=== PATIENT | female | born 1985 | race African-American/Black ===

== ENCOUNTER 2025-01-13 18:01 | Emergency (ER) | payer SELFPAY ==
[2025-01-13 19:48] LABS: Absolute Eosinophils 0.1 K/uL (0-0.5); Absolute Lymphocytes (CBC) 3.1 K/uL (0.7-4.9); Absolute Monocytes 0.8 K/uL (0.1-1.3); Absolute Neutrophil 3.7 K/uL (1.8-8.0); Basophils % 0.6 % (0-1.3); Eosinophils % 1.2 % (0-4.4); Hematocrit 33.8 % (36.0-45.0); Hemoglobin 10.6 g/dL (12.0-15.0); Lymphocytes % 40.1 % (15.3-44.8); MCH 22.5 pg (27.0-35.0); MCHC 31.3 g/dL (32.0-36.0); MCV 72.1 fL (80-100); MPV 7.7 fL (7.6-11.3); Monocytes % 9.9 % (3.3-12.3); Neutrophils % 48.2 % (41.7-73.7); Nucleated Red Blood Cells % 0.1 % (0-0); Platelets 407 thou/uL (152-406); RBC Red Blood Cell Count 4.69 M/uL (3.86-4.86); Red Cell Distribution Width 17.4 % (12.1-15.2)
[2025-01-13] MEDS ORDERED: KETOROLAC 30 MG/ML INJ ONE (19:56)
[2025-01-13] MEDS ORDERED: NA CHLORIDE 0.9% 1,000 ML ONE (19:56)
[2025-01-13] MEDS ORDERED: MORPHINE 4 MG/ML SYR ONE (19:56)
[2025-01-13 19:58] LABS: Urine Bilirubin NEGATIVE (Negative); Urine Blood Negative (Negative); Urine Clarity Clear (Clear); Urine Color Light-Yellow (Yellow); Urine Glucose NEGATIVE (Negative); Urine Ketones NEGATIVE (Negative); Urine Microscopic Reflex YN NO UMIC; Urine Nitrite NEGATIVE (Negative); Urine Protein NEGATIVE (Negative); Urine Urobilinogen Normal (Normal)
[2025-01-13 20:01] LABS: Specific Gravity > 1.030 (1.005-1.030)
[2025-01-13 20:03] LABS: Albumin 3.4 g/dL (3.4-5.0); Albumin/Globulin Ratio 0.8 (1.1-1.8); Bilirubin Total 0.2 mg/dL (0.2-1.0); Globulin 4.5 g/dL (2.3-3.5); Protein, Total 7.9 g/dL (6.4-8.2)
--- NOTE | 2025-01-13 22:12 | RAD REPORT ---
EXAMINATION: CT Abdomen Pelvis W Contrast CLINICAL INDICATION: Female, 39 years old. FLANK PAIN TECHNIQUE: CT abdomen and pelvis was performed, after the administration of IV contrast, as [facility]. Axial, sagittal and coronal reconstructions were obtained. One or more of the following dose reduction techniques were used: Automated exposure control, adjustment of the mA and k V according to patient size, and iterative reconstruction. Unless otherwise specified, incidental findings do not require dedicated imaging follow-up. COMPARISON: No prior exam. FINDINGS: LOWER CHEST: The visualized lung bases are clear. LIVER: Mild fatty liver is present. No focal lesion or biliary dilataion is seen. BILIARY SYSTEM: Status post cholecystectomy. SPLEEN: Normal size. No focal lesion. PANCREAS: No mass, ductal dilation, or favio-pancreatic fluid. ADRENALS: Normal; no mass. KIDNEYS: Normal size and contour. No hydronephrosis. URINARY BLADDER: Unremarkable. GASTROINTESTINAL TRACT: No evidence of free air, significant intra-abdominal free fluid, bowel obstru ction or abscess. APPENDIX: Normal appendix. LYMPH NODES: No lymphadenopathy. MUSCULOSKELETAL: No acute or suspicious osseous abnormality. ADDITIONAL FINDINGS: Bulky appearance of the uterus with a large dominant fundal fibroid, measuring u p to 12.8 cm, with other smaller fibroids to the right of the midline. IMPRESSION: No acute abnormalities seen in the abdomen or pelvis. Fibroid uterus, with a dominant fundal fibroid measuring up to 12.8 cm. Diffuse hepatic steatosis.
--- NOTE | 2025-01-13 22:22 | ER ---
Nurse's Notes [facility] Name: Devika Mejia Age: 39 yrs Sex: Female : 1985 Arrival Date: 01/13/2025 Time: 18:01 Bed 20 Private MD: Diagnosis: Strain of muscle, fascia and tendon of abdomen, lower back and pelvis;Uterine fibroid Presentation: 01/13 18:49 Chief complaint: Patient states: Right flank and pain with urination x 3 days. jl7 Coronavirus screen: At this time, the client does not indicate any symptoms associated with coronavirus-19. Ebola Screen: No symptoms or risks identified at this time. Initial Sepsis Screen: Does the patient meet any 2 criteria? No. Patient's initial sepsis screen is negative. Does the patient have a suspected source of infection? No. Patient's initial sepsis screen is negative. Risk Assessment: Do you want to hurt yourself or someone else? Patient reports no desire to harm self or others. Onset of symptoms was January 11, 2025. 18:49 Method Of Arrival: Ambulatory [facility] 18:49 Acuity: GABRIELE 3 jl7 Triage Assessment: 18:51 General: Appears in no apparent distress. uncomfortable, Behavior is calm, cooperative, jl7 appropriate for age. Pain: Complains of pain in right flank Pain currently is 6 out of 10 on a pain scale. Neuro: Level of Consciousness is awake, alert, obeys commands, Oriented to person, place, time, situation. : Reports pain with urination. 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 - Infectious Disease History:: Denies. - Social history:: Smoking status: Patient denies any tobacco usage or history of. Screenin:50 [facility] ED Fall Risk Assessment (Adult) History of falling in the last 3 months, kj2 including since admission No falls in past 3 months (0 pts) Confusion or Disorientation No (0 pts) Intoxicated or Sedated No (0 pts) Impaired Gait No (0 pts) Mobility Assist Device Used No (0 pt) Altered Elimination No (0 pt) Score/Fall Risk Level 0 - 2 = Low Risk Maintained a safe environment, Hourly rounding (assess needs \T\ fall precautionary measures) done. 19:50 Abuse screen: Denies threats or abuse. Denies injuries from another. Nutritional kj2 screening: No deficits noted. Tuberculosis screening: No symptoms or risk factors identified. Assessment: 19:49 General: Appears in no apparent distress. uncomfortable, Behavior is cooperative. Pain: kj2 Complains of pain in back and right flank Pain currently is 6 out of 10 on a pain scale. Neuro: Level of Consciousness is awake, alert, obeys commands, Oriented to person, place, time, situation. Cardiovascular: Patient's skin is warm and dry. Respiratory: Airway is patent Respiratory effort is even, unlabored. GI: No signs and/or symptoms were reported involving the gastrointestinal system. : Reports pain in right flank(s). 20:50 Reassessment: Patient appears in no apparent distress at this time. Patient and/or kj2 family updated on plan of care and expected duration. Pain level reassessed. Patient is alert, oriented x 3, equal unlabored respirations, skin warm/dry/pink. 21:47 Reassessment: Patient appears in no apparent distress at this time. Patient and/or kj2 family updated on plan of care and expected duration. Pain level reassessed. Patient is alert, oriented x 3, equal unlabored respirations, skin warm/dry/pink. 22:24 Reassessment: Patient appears in no apparent distress at this time. Patient and/or kj2 family updated on plan of care and expected duration. Pain level reassessed. Patient is alert, oriented x 3, equal unlabored respirations, skin warm/dry/pink. Vital Signs: 18:49 BP 148 / 102; Pulse 86; Resp 17; Temp 97.9; Pulse Ox 100% ; Weight 113.4 kg; Height 5 jl7 ft. 1 in. ; Pain 6/10; 20:00 BP 135 / 75; Pulse 81; Resp 20; Pulse Ox 100% ; kj2 21:45 BP 146 / 87; Pulse 80; Resp 18; Pulse Ox 100% on R/A; kj2 22:24 BP 140 / 78; Pulse 78; Resp 18; Temp 98; Pulse Ox 100% on R/A; kj2 18:49 Body Mass Index 47.24 (113.40 kg, 154.94 cm) jl7 18:49 Pain Scale: Adult jl7 ED Course: 18:07 Patient arrived in ED. im 18:15 Trinidad Hopper [facility] sb[facility] 18:15 Jaciel Mata MD is Attending Physician. sb4 18:51 Triage completed. jl7 18:51 Arm band placed on right wrist. Patient placed in waiting room, Patient notified of jl7 wait time. 19:48 Shoshana Carlos, DONELL is Primary Nurse. kj2 19:49 Inserted saline lock: 20 gauge in right antecubital area, using aseptic technique. oe Blood collected. Flushed with 10 mL NS. 19:50 Patient has correct armband on for positive identification. Bed in low position. kj2 Provided Education on: call light. 19:51 CBC with Diff Sent. oe 19:51 CMP Sent. oe 19:51 Lipase Sent. oe 19:51 Test, Urine Sent. oe 19:51 Urinalysis w/ reflexes Sent. oe 21:16 CT Abd/Pelvis - IV Contrast Only In Process Unspecified. EDMS 22:23 No provider procedures requiring assistance completed. IV discontinued, intact, kj2 bleeding controlled, No redness/swelling at site. Pressure dressing applied. Administered Medications: 20:00 Drug: morphine IVP or IV 4 mg IVP once over 4 mins Route: IVP; Infused Over: 4 mins; kj2 Site: right antecubital; 22:26 Follow up: Response: No adverse reaction kj2 20:06 Drug: TORadol - Ketorolac IVP 15 mg IVP once Route: IVP; Site: right antecubital; kj2 22:26 Follow up: Response: No adverse reaction kj2 20:06 Drug: NS 0.9% IV 1000 ml IV at 1 bolus Per protocol; to be given as a bolus over 60 kj2 minutes Route: IV; Rate: 1 bolus; Site: right antecubital; 22:26 Follow up: IV Status: Completed infusion kj2 Medication: 22:23 VIS not applicable for this client. kj2 Outcome: 22:21 Discharge ordered by . sb4 22:24 Discharged to home ambulatory, with family, kj2 22:24 Condition: stable 22:24 Discharge instructions given to patient, Instructed on discharge instructions, follow up and referral plans. Demonstrated understanding of instructions, follow-up care, 22:38 Patient left the ED. kj2 Signatures: Dispatcher [employer] Varun Andrade Jahala, RN RN jl7 Trinidad Hopper PA-C PARema [email or web address] Edna Mack Krystal, RN RN kj2
--- NOTE | 2025-01-13 22:22 | EDPHYS ---
Physician Documentation [facility] Name: Devika Mejia Age: 39 yrs Sex: Female : 1985 Arrival Date: 01/13/2025 Time: 18:01 Bed 20 Private MD: ED Physician Jaciel Mata HPI: 01/13 18:51 This 39 yrs old Black Female presents to ER via Ambulatory with complaints of Pain With sb4 Urination, Flank Pain. 18:51 right sided abd/flank pain x 3 days. is not sure if she injured herself. 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 also reports some dysuria and darker urine. no hematuria, no difficulty urinating. no history of stones. 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 - Infectious Disease History:: Denies. - Social history:: Smoking status: Patient denies any tobacco usage or history of. ROS: 18:51 Constitutional: Negative for fever, chills, and weight loss, sb4 18:51 Back: Positive for flank pain, on the right, 18:51 : Positive for burning with urination, 18:51 All other systems are negative, Exam: 18:53 Head/Face: Normocephalic, atraumatic. Eyes: Extra-ocular motions intact. Periorbital sb4 areas with no swelling, redness, or edema. ENT: Mucous membranes moist. Cardiovascular: Regular rate and rhythm with a normal S1 and S2. Respiratory: No increased work of breathing, no retractions or nasal flaring. Abdomen/GI: Soft, non-tender, no distension. Back: No spinal tenderness. No costovertebral tenderness. Full range of motion. Skin: Warm, dry with normal turgor. Normal color with no rashes, no lesions, and no evidence of cellulitis. MS/ Extremity: Pulses equal, no cyanosis. Neurovascular intact. Full, normal range of motion. 18:53 Constitutional: The patient appears alert, awake, obese, uncomfortable, Vital Signs: 18:49 BP 148 / 102; Pulse 86; Resp 17; Temp 97.9; Pulse Ox 100% ; Weight 113.4 kg; Height 5 jl7 ft. 1 in. ; Pain 6/10; 20:00 BP 135 / 75; Pulse 81; Resp 20; Pulse Ox 100% ; kj2 21:45 BP 146 / 87; Pulse 80; Resp 18; Pulse Ox 100% on R/A; kj2 22:24 BP 140 / 78; Pulse 78; Resp 18; Temp 98; Pulse Ox 100% on R/A; kj2 18:49 Body Mass Index 47.24 (113.40 kg, 154.94 cm) jl7 18:49 Pain Scale: Adult jl7 MDM: 18:17 Medical Screening Exam initiated sb4 22:20 Data reviewed: vital signs, nurses notes, lab test result(s), radiologic studies, and sb4 as a result, I will discharge patient. Counseling: I had a detailed discussion with the patient and/or guardian regarding the historical points, exam findings, and any diagnostic results supporting the discharge/admit diagnosis, the presence of at least one elevated blood pressure reading (>120/80) during this emergency department visit, lab results, radiology results, the need for outpatient follow up, for definitive care, to return to the emergency department if symptoms worsen or persist or if there are any questions or concerns that arise at home. 01/13 18:45 Order name: CBC with Diff; Complete Time: 19:56 sb4 01/13 18:45 Order name: CMP; Complete Time: 20:05 sb4 01/13 18:45 Order name: Lipase; Complete Time: 20:05 sb4 01/13 18:45 Order name: Test, Urine; Complete Time: 20:05 sb4 01/13 18:45 Order name: Urinalysis w/ reflexes; Complete Time: 19:59 sb4 01/13 18:45 Order name: CT Abd/Pelvis - IV Contrast Only; Complete Time: 22:13 sb4 01/13 18:45 Order name: IV Saline Lock; Complete Time: 19:50 sb4 01/13 18:45 Order name: Labs collected and sent; Complete Time: 19:50 sb4 Administered Medications: 20:00 Drug: morphine IVP or IV 4 mg IVP once over 4 mins Route: IVP; Infused Over: 4 mins; kj2 Site: right antecubital; 22:26 Follow up: Response: No adverse reaction kj2 20:06 Drug: TORadol - Ketorolac IVP 15 mg IVP once Route: IVP; Site: right antecubital; kj2 22:26 Follow up: Response: No adverse reaction kj2 20:06 Drug: NS 0.9% IV 1000 ml IV at 1 bolus Per protocol; to be given as a bolus over 60 kj2 minutes Route: IV; Rate: 1 bolus; Site: right antecubital; 22:26 Follow up: IV Status: Completed infusion kj2 Disposition Summary: 01/13/25 22:21 Discharge Ordered Notes: Location: Home sb4 Problem: new sb4 Symptoms: have improved sb4 Condition: Stable sb4 Diagnosis - Strain of muscle, fascia and tendon of abdomen, lower back and pelvis sb4 - Uterine fibroid sb4 Followup: sb4 - With: Private Physician - When: As needed - Reason: Recheck today's complaints, Re-evaluation by your physician Discharge Instructions: - Discharge Summary Sheet sb4 - Muscle Strain, [id number] sb4 - Uterine Fibroids, [id number] sb4 Forms: - Work release form sb4 - Patient Portal Instructions sb4 - Leadership Thank You Letter sb4 Prescriptions: - Diclofenac Sodium 75 mg Oral Tablet Sustained Release - take 1 tablet ORAL route 2 times per day; 30 tablet; Refills: 0, Product sb4 Selection Permitted - Cyclobenzaprine 5 mg Oral Tablet - take 1 tablet ORAL route 3 times per day As needed; 15 tablet; Refills: 0, sb4 Product Selection Permitted Addendum: 01/15/2025 12:40 Co-signature as Attending Physician, Jaciel Mata MD I agree with the assessment and c odonnell plan of care. Signatures: Dispatcher [employer] Jaciel Mcmanus MD MD cha Leal, Jahala RN RN [email or web address] Trinidad Hopper PA-C PA-C sb4 Shoshana Carlos RN RN kj2 Corrections: (The following items were deleted from the chart) 01/13 18:46 18:46 CBC+H.LAB.BRZ ordered. EDMS EDMS 18:46 18:46 COMPREHENSIVE METABOLIC PANEL+C.LAB.BRZ ordered. EDMS EDMS 18:46 18:46 LIPASE+C.LAB.BRZ ordered. EDMS EDMS 18:46 18:46 Test, Urine+UC.LAB.BRZ ordered. EDMS EDMS 18:46 18:46 Urinalysis+U.LAB.BRZ ordered. EDMS EDMS 18:46 18:46 Abdomen Pelvis W Con+CT.RAD.BRZ ordered. EDMS EDMS
[2025-01-13 22:52] VITALS: O2SAT 100
[2025-01-13 22:55] VITALS: BP 140/78; TEMP 98
== END 2025-01-13 22:38 | disposition home or self-care (01) ==
LOC: ER 18:01
DX: S39.011A Strain of muscle, fascia and tendon of abdomen, initial encounter (principal); S39.012A Strain of muscle, fascia and tendon of lower back, initial encounter; S39.013A Strain of muscle, fascia and tendon of pelvis, initial encounter; D25.9 Leiomyoma of uterus, unspecified
CPT/HCPCS: 36415; 74177; 80053; 81003; 81025; 83690; 85025; 96361; 96374; 96375; 99284; J7030; Q9967